=== PATIENT | female | born 1995 | race Caucasian/White ===

== ENCOUNTER 2021-06-26 09:09 | Outpatient (CLI) | payer OTHER | END 2021-06-26 09:10 | disposition home or self-care (01) | LOC: BICRAD 09:09 | PROVIDERS: ATTEND Nurse Practitioner Family | DX: S93.491S Sprain of other ligament of right ankle, sequela (principal) ==

== ENCOUNTER 2021-07-23 10:21 | Outpatient (CLI) | payer OTHER | END 2021-07-23 10:22 | disposition home or self-care (01) | LOC: MRI 10:21 | PROVIDERS: ATTEND Nurse Practitioner Family | DX: M25.571 Pain in right ankle and joints of right foot (principal); S93.401A Sprain of unspecified ligament of right ankle, initial encounter ==